=== PATIENT | female | born 1935 | race Caucasian/White ===

== ENCOUNTER → 2018-02-28 | Outpatient (CLI) | payer MEDICARE, OTHER ==
[~2018-02-28] MED LIST: ASPIRIN325 PO; COLACE100 MG PO; GLUCOSAMINE HC500 MG PO; HYDROCODONE-AP1 EAC6 PO; IRON325 PO; LEVOTHYROXINE0.05 MG PO; LIPITOR10 MG PO; METFORMIN HCL500 MG PO; NORCO 5-325 TA1 EACH PO; OXYCODONE HCL 55 MG PO; TOPROL XL50 MG PO; TRIAMTERENE/HCT1 CA1 PO; XARELTO10 MG PO; ZOCOR20 MG PO
== END ==
LOC: M.RAD 14:58
DX: Z12.31 Encounter for screening mammogram for malignant neoplasm of breast (principal); E78.00 Pure hypercholesterolemia, unspecified; E03.9 Hypothyroidism, unspecified; I10 Essential (primary) hypertension

== ENCOUNTER → 2018-07-31 | Outpatient (CLI) | payer MEDICARE, OTHER | LOC: M.ULTRA 07:01 | DX: R10.11 Right upper quadrant pain (principal); R10.10 Upper abdominal pain, unspecified ==